=== PATIENT | male | born 1995 | race Two or more races ===

== ENCOUNTER 2022-05-16 09:26 | Emergency (ER) | payer OTHER ==
[2022-05-16 09:44] VITALS: BP 138/79; PULSE 76; RESP 18; TEMP 99.2; BMI 29.9
[2022-05-16] MEDS ORDERED: ACETAMINOPHEN 1000 MG/100 ML BAG IVPB ONE (09:55)
[2022-05-16] MEDS ORDERED: ONDANSETRON 4 MG/2 ML VIAL IVPUSH ONE (09:56)
[2022-05-16] MEDS ORDERED: SODIUM CHLORIDE 1,000 ML IV STA (09:56)
[2022-05-16] MEDS ORDERED: ACETAMINOPHEN INJECTION 100 ML IVPB ONE (10:07)
[2022-05-16] MEDS ORDERED: ONDANSETRON 4 MG/2 ML VIAL ONE (10:08)
[2022-05-16 10:40] LABS: BASO % 0.5 % (0-2.0); EOS % 2.9 % (0-4.5); HEMATOCRIT 45.1 % (35.4-49); HEMOGLOBIN 15.4 GM/dL (11.7-16.9); LYMPH % 30.8 % (8-40); MCH 29.2 pg (25.7-33.7); MEAN CELL VOLUME 85.9 fl (80-96); MEAN PLT VOLUME 8.3 fl (7.5-11.1); NEUT % 57.8 % (42.8-82.8); PLATELET COUNT 262 10^3/uL (134-434); RBC 5.26 M/mm3 (4.00-5.60); RDW 13.5 % (11.9-15.9); WHITE BLOOD COUNT 7.5 K/mm3 (4.0-10.0)
[2022-05-16 11:01] LABS: CALCIUM 9.5 mg/dL (8.5-10.1)
[2022-05-16 11:02] LABS: ALBUMIN 4.2 g/dl (3.4-5.0); BLOOD UREA NITROGEN 17.8 mg/dL (7-18)
[2022-05-16 11:05] LABS: CREATININE 0.9 mg/dL (0.55-1.3)
[2022-05-16 11:06] LABS: BILIRUBIN,TOTAL 0.8 mg/dL (0.2-1); TOT PROT 7.7 g/dl (6.4-8.2)
== END 2022-05-16 12:05 | disposition home or self-care (01) ==
LOC: JER 09:26
PROC: 3E033NZ Introduction of Analgesics, Hypnotics, Sedatives into Peripheral Vein, Percutaneous Approach (ICD-10-PCS; principal; 2022-05-16)
PROC: 3E033GC Introduction of Other Therapeutic Substance into Peripheral Vein, Percutaneous Approach (ICD-10-PCS; 2022-05-16)
PROC: 3E0337Z Introduction of Electrolytic and Water Balance Substance into Peripheral Vein, Percutaneous Approach (ICD-10-PCS; 2022-05-16)
DX: R11.2 Nausea with vomiting, unspecified (principal); R19.7 Diarrhea, unspecified
CPT/HCPCS: 0241U-QW; 36415; 80053; 85025; 99284-25

== ENCOUNTER 2022-08-26 18:45 | Emergency (ER) | payer OTHER ==
[2022-08-26 20:32] VITALS: BP 129/85; PULSE 81; RESP 20; TEMP 98; BMI 30.4
[2022-08-26] MEDS ORDERED: IBUPROFEN 600 MG TABLET (FP) PO ONE ×2 (20:47→20:51)
== END 2022-08-26 22:33 | disposition home or self-care (01) ==
LOC: JER 18:45 → JERFT 18:45
DX: M25.561 Pain in right knee (principal); M25.562 Pain in left knee
CPT/HCPCS: 73562-TC-LT-FY; 73562-TC-RT-FY; 99284-25